=== PATIENT | female | born 1970 | race Caucasian/White ===

== ENCOUNTER 2021-02-17 06:16 | Emergency (ER) | payer MEDICARE, MEDICAID ==
[~2021-02-17] VITALS: Ht 175.3 cm; Wt 113.9 kg
[~2021-02-17 06:16] MED LIST: ASPI-611 PO; DEXL60CA3 PO; ERGO500041 PO; HUM7525 SQ; INSU100V9 SQ; METF500T PO; RANI300T4 PO
[2021-02-17 06:23] VITALS: BP 134/73
[2021-02-17 06:49] LABS: CLARITY,URINE CLEAR (Clear); COLOR,URINE YELLOW (Yellow); GLUCOSE, URINE >=1000 mg/dl (Neg); KETONES,URINE NEGATIVE (Neg); LEUKOCYTE ESTERASE ,URINE NEGATIVE (Neg); NITRITES, URINE NEGATIVE (Neg); OCCULT BLOOD,URINE TRACE-INTACT (Neg); PROTEIN,URINE NEGATIVE (Neg); URINE HCG NEGATIVE (NEG); UROBILINOGEN,URINE 0.2 E.U/dL (0.2-1.0)
[2021-02-17 06:50] LABS: UA COLLECTION TYPE CLN CATCH MIDSTREAM
[2021-02-17 06:59] LABS: SQUAMOUS EPITHELIAL CELL,UR MODERATE /LPF (FEW)
[2021-02-17 07:00] LABS: BACTERIA,URINE FEW /HPF (Neg); RBC,URINE 0-2 /HPF (0-2)
[2021-02-17 07:01] LABS: WBC,URINE 0-4 /HPF (0-4)
[2021-02-17] MEDS ORDERED: ketorolac tromethamine 15mg/ml inj. IM ONE (08:25)
[2021-02-17] MEDS ORDERED: cyclobenzaprine 10mg tablet PO ONE (08:25)
[2021-02-17] MEDS ORDERED: IBUP-1984 PO (08:27)
[2021-02-17] MEDS ORDERED: CYCL-1 PO (08:27)
== END 2021-02-17 09:07 | disposition home or self-care (01) ==
LOC: ER 06:17
DX: S39.012A Strain of muscle, fascia and tendon of lower back, initial encounter (principal); G89.29 Other chronic pain; K21.9 Gastro-esophageal reflux disease without esophagitis; F32.9 Major depressive disorder, single episode, unspecified; Z88.8 Allergy status to other drugs, medicaments and biological substances; Z88.5 Allergy status to narcotic agent; Z79.82 Long term (current) use of aspirin; Z79.899 Other long term (current) drug therapy; X58.XXXA Exposure to other specified factors, initial encounter; Y93.89 Activity, other specified; Y92.89 Other specified places as the place of occurrence of the external cause; Y99.8 Other external cause status
CPT/HCPCS: 81001; 81025; 96372; 99283; J1885